=== PATIENT | male | born 1965 | race Caucasian/White ===

== ENCOUNTER 2022-06-07 17:12 | Emergency (ER) | payer MEDICAID ==
[~2022-06-07] VITALS: Ht 162.6 cm; Wt 71.7 kg
[2022-06-07 17:40] VITALS: BP_SYST 142
[2022-06-07 18:27] LABS: BASOPHILS % (AUTO) 0.2 % (0.0-2.0); EOSINOPHILS # (AUTO) 0.2 K/uL (0.0-0.4); EOSINOPHILS % (AUTO) 2.1 % (0.0-4.0); HEMATOCRIT 46.1 % (36-54); HEMOGLOBIN 15.7 g/dL (14.0-18.0); LYMPHOCYTES # (AUTO) 1.4 K/uL (1.0-5.5); LYMPHOCYTES % (AUTO) 19.2 % (20.5-51.5); MEAN CORPUSCULAR HEMOGLOBIN 31 pg (27-31); MEAN CORPUSCULAR HGB CONC 34 % (32-36); MEAN CORPUSCULAR VOLUME 92 fL (79.0-98.0); MONOCYTES # (AUTO) 1.1 K/uL (0.0-1.0); MONOCYTES % (AUTO) 15.5 % (1.7-9.3); NEUTROPHILS # (AUTO) 4.6 K/uL (1.8-7.7); PLATELET COUNT (AUTO) 200 K/uL (130-430); RED BLOOD CELL COUNT(AUTO) 5.03 MIL/uL (4.2-6.2); RED CELL DISTRIBUTION WIDTH 13.8 % (9.0-15.0); WHITE BLOOD COUNT (AUTO) 7.3 K/uL (4.8-10.8)
[2022-06-07 18:36] LABS: ANION GAP 10 (5-15); CALCIUM 8.5 mg/dL (8.4-11.0); CHLORIDE 102 mmol/L (98-107); CREATININE 0.78 mg/dL (0.55-1.30); GFR AFRICAN AMERICAN 131 mL/min (>90); GLUCOSE 87 mg/dL (70-99); UREA NITROGEN, BLOOD 12 mg/dL (8-21)
[2022-06-07 18:44] LABS: ALANINE AMINOTRANSFERASE 36 U/L (12-78); ALBUMIN 3.7 g/dL (3.4-4.8); AMYLASE 62 U/L (0-100); ASPARTATE AMINOTRANSFERASE 39 U/L (10-37); C-REACTIVE PROTEIN QUANT 2.1 mg/dL (0-0.5); LACTATE DEHYDROGENASE 175 U/L (85-227); LIPASE 316 U/L (73-393); TOTAL BILIRUBIN 0.3 mg/dL (0.0-1.0)
[2022-06-07 18:56] LABS: ACETONE, SERUM NEGATIVE (NEGATIVE)
--- NOTE | 2022-06-07 20:00 | NUR ---
ER at triage examining patient.
[2022-06-07 20:23] LABS: BILIRUBIN,URINE NEGATIVE (NEGATIVE); BLOOD, URINE NEGATIVE (NEGATIVE); CLARITY/URINE CLEAR (CLEAR); COLOR,URINE YELLOW (YELLOW); GLUCOSE,URINE NEGATIVE (NEGATIVE); KETONES,URINE NEGATIVE (NEGATIVE); LEUKOCYTE ESTERASE ,URINE NEGATIVE (NEGATIVE); NITRITE, URINE NEGATIVE (NEGATIVE); PH,URINE 5.5 (5.0-8.0); PROTEIN URINE NEGATIVE (NEGATIVE); UROBILINOGEN,URINE 0.2 (0.2-1.0)
--- NOTE | 2022-06-07 20:23 | NUR ---
PATIENT STOOL COLLECTED AND SENT TO LAB.
[2022-06-07] MEDS ORDERED: LOM2.5 PO (20:48)
[2022-06-07 21:11] VITALS: BP_SYST 114
--- NOTE | 2022-06-07 21:14 | NUR ---
Patient given written and verbal discharge instructions and verbalizes understanding. ER MD discussed with patient the results and treatment provided. Patient in stable condition. ID arm band removed. Patient educated on pain management and to follow up with PMD. Opportunity for questions provided and answered. Medication side effect fact sheet provided.
== END 2022-06-07 21:13 | disposition home or self-care (01) ==
LOC: SED 17:12
DX: R19.7 Diarrhea, unspecified (principal); R10.84 Generalized abdominal pain; I10 Essential (primary) hypertension; Z79.899 Other long term (current) drug therapy
CPT/HCPCS: 36415; 76376; 80053; 81003; 82009; 82150; 83605; 83615; 83690; 85025; 86140; 99284